=== PATIENT | female | born 1960 | race Caucasian/White ===

== ENCOUNTER → 2016-12-16 | Outpatient (CLI) | payer OTHER ==
[~2016-12-16] MED LIST: CONRAY-43 43% 50ML VIAL (Q9960) As Ordered ONE
--- NOTE | 2016-12-16 10:06 | REP ---
MR ARTHROGRAM RIGHT SHOULDER: TECHNIQUE: Axial T2 fat sat, coronal oblique T1, T2 fat sat, post arthrogram axial T1 fat sat, proton density, coronal oblique T1 fat sat, T2 sat, sagittal oblique T2 fat sat, ABER T1 fat sat. There is ill-defined high signal involving the supraspinatus tendon both along the bursal surface and under surface with a mild increased signal within the substance of the tendon as well, compatible with tendinopathy/tendonitis. The anterior portion of the tendon appears frayed. There is no other evidence of rotator cuff tear. There are mild hypertrophic degenerative changes of the acromioclavicular joint. Acromion is mildly curved in shape. Biceps tendon is within the bicipital groove with no tenosynovitis. There is no Hill-Sach's deformity. Deltoid muscle demonstrates no abnormal signal. Biceps labral complex appears intact. I do not see evidence of a labral tear. There is no bone marrow edema or occult fracture. There is a small joint effusion. There is a small amount of fluid in the subacromial bursa which may represent an element of subacromial bursitis. Several axillary lymph nodes are present one of which is mildly enlarged measuring 1.3 cm in short axis dimension. IMPRESSION: Mild hypertrophic degenerative changes acromioclavicular joint with curved shaped of the acromion. Tendinopathy/tendonitis of the supraspinatus tendon with fraying at the anterior leading edge. No other evidence of rotator cuff or labral tear. Mild fluid in the subacromial bursa may represent an element of mild subacromial bursitis. There is mild right axillary adenopathy. Recommend CT of the chest with contrast to further evaluate for other abnormalities. Signed by Cornell Garcia MD 12/16/2016 01:19 P
--- NOTE | 2016-12-17 18:31 | REP ---
Procedure: Right shoulder arthrogram The procedure was performed under the direct supervision of Dr. Garcia. History: Right shoulder pain The benefits and risks including but not limited to pain, infection, bleeding and anaphylaxis were explained to the patient and informed consent was obtained. Technique: The right a glenohumeral joint space was localized using fluoroscopic guidance. The skin was prepped and draped in a sterile fashion. 1% lidocaine was used as a local anesthetic. Using fluoroscopic guidance a 22 gauge spinal needle was inserted and advanced into the joint. 0.5 ml of Conray 43 was injected to verify placement. 11 ml of a solution containing 20 ml of sterile saline and 0.15 ml of ProHance was injected into the joint. The needle was removed and the patient was taken to MRI for postprocedural imaging. The the patient tolerated the procedure well and there were no immediate complications. 1 second of fluoro time was utilized for this procedure. Reviewed by BRAIN Rogers 12/16/2016 04:32 PSigned by Cornell Garcia MD 12/17/2016 06:23 P
== END ==
LOC: M RADPRO 06:59
PROVIDERS: ATTEND Physician Assistant
DX: M75.21 Bicipital tendinitis, right shoulder (principal); M25.811 Other specified joint disorders, right shoulder
CPT/HCPCS: 23350; 73223; 77002; A9576; Q9960

== ENCOUNTER → 2017-09-30 | Outpatient (REF) | payer OTHER | LOC: M SFHCWAGY 13:15 | PROVIDERS: ATTEND Nurse Practitioner Women's Health | DX: Z12.4 Encounter for screening for malignant neoplasm of cervix (principal) ==

== ENCOUNTER → 2017-09-30 | Outpatient (CLI) | payer OTHER ==
--- NOTE | 2017-09-30 15:49 | REPMRS ---
Patient History The patient states she had a clinical breast exam in Patient is postmenopausal. No known family history of cancer. Digital Woman Screen Mammo: September 30, 2017 - Exam #: [id number] Bilateral CC and MLO view(s) were taken. Technologist: Betty Wood, Technologist Prior study comparison: September 17, 2016, digital woman screen mammo performed at [facility]. September 12, 2015, digital woman screen mammo performed at [facility]. August 22, 2014, digital woman screen mammo performed at [facility]. FINDINGS: The breast tissue is heterogeneously dense. This may lower the sensitivity of mammography. There is a moderate amount of heterogeneously dense fibroglandular tissue which is fairly symmetric. There is no interval development of dominant mass, architectural distortion, or clustered microcalcification typical of malignancy. There has been no change in the appearance of the mammogram from the prior studies. ASSESSMENT: BI-RADS/ACR category 1 mammogram. Negative. Recommendation Routine screening mammogram of both breasts in 1 year (for women over age 40). This mammogram was interpreted with the aid of an FDA-approved computer-aided dectection system. Electronically Signed By: Rafael Mercado MD 09/30/17 [id number]
== END ==
LOC: M WHC 12:52
PROVIDERS: ATTEND Nurse Practitioner Women's Health
DX: Z12.31 Encounter for screening mammogram for malignant neoplasm of breast (principal)

== ENCOUNTER → 2017-10-03 | Outpatient (CLI) | payer OTHER ==
--- NOTE | 2017-10-04 06:53 | REP ---
Clinical: Pelvic pain . Technique: Transabdominal pelvic ultrasound followed by transvaginal examination for better evaluation of the endometrium and adnexa with color Doppler evaluation of the ovaries. Findings: Bladder is unremarkable and measures 9.6 x 6.5 x 9.5 cm . Normal anteverted uterus measures 5.0 x 2.3 x 3.3 cm. The endometrial complex measures 4.0 mm thickness. 1 cm left intramural fibroid noted. Bilateral ovaries are normal in appearance. Right ovary measures 1.9 x 1.3 x 1.3 cm. Left ovary measures 1.9 x 1.1 x 1.0 cm. Subjectively increased pelvic vasculature (left greater than right) may reflect pelvic congestion syndrome and should be correlated clinically. No pelvic free fluid or adnexal mass lesion Impression: 1. 1 cm left intramural fibroid. Otherwise normal uterus and ovaries. 2. Suggestions for pelvic congestion syndrome requires clinical and physical correlation.
== END ==
LOC: M WHC 12:24
PROVIDERS: ATTEND Nurse Practitioner Women's Health
DX: R10.2 Pelvic and perineal pain (principal)

== ENCOUNTER → 2018-10-06 | Outpatient (CLI) | payer OTHER | LOC: M WHC 12:56 | DX: Z12.31 Encounter for screening mammogram for malignant neoplasm of breast (principal) | CPT/HCPCS: 77067 ==

== ENCOUNTER → 2019-10-08 | Outpatient (CLI) | payer OTHER ==
--- NOTE | 2019-10-08 10:09 | REPMRS ---
Patient History The patient states she has not had a clinical breast exam in over a year. No known family history of cancer. 3D TOMOSYNTHESIS WAS PERFORMED. [facility] lifetime risk for [facility] cancer is 9.0%. Digital Woman Screen Mammo: October 08, 2019 - Exam #: [id number] Bilateral CC and MLO view(s) were taken. Technologist: Tammy Inman, Technologist Prior study comparison: October 06, 2018, bilateral digital woman screen mammo performed at [facility]. September 30, 2017, digital woman screen mammo performed at [facility]. FINDINGS: The breast tissue is heterogeneously dense. This may lower the sensitivity of mammography. There has been no change in the appearance of the mammogram from the prior studies. There is a moderate amount of residual fibroglandular tissue which is fairly symmetric. There is no interval development of dominant mass, areas of architectural distortion, or clustered microcalcification typical of malignancy. Assessment: BI-RADS/ACR category 1 mammogram. Negative Mammogram. Recommendation Routine screening mammogram in 1 year (for women over age 40). This mammogram was interpreted with the aid of an FDA-approved computer-aided dectection system. Electronically Signed By: Cornell Garcia MD 10/08/19 3717
== END ==
LOC: M WHC 09:19
PROVIDERS: ATTEND Nurse Practitioner Women's Health
DX: Z12.31 Encounter for screening mammogram for malignant neoplasm of breast (principal)

== ENCOUNTER → 2020-12-23 | Outpatient (CLI) | payer OTHER ==
--- NOTE | 2020-12-23 15:17 | REPMRS ---
Patient History The patient states she had a clinical breast exam in 12/2020 No known family history of cancer. Digital Woman Screen Mammo: December 23, 2020 - Exam #: [id number] Bilateral CC and MLO view(s) were taken. Technologist: Kerri Spaulding, Technologist Prior study comparison: October 08, 2019, bilateral digital woman screen mammo performed at [facility]. October 06, 2018, bilateral digital woman screen mammo performed at [facility]. September 30, 2017, digital woman screen mammo performed at [facility]. FINDINGS: The breast tissue is extremely dense which could obscure a lesion on mammography. The [place] volumetric breast density category is: D. There is an extremely dense symmetrical pattern of residual fibroglandular tissue. There has been no change in the appearance of the mammogram from the previous studies. There is no interval development of dominant mass, archetectural distortion, or grouped microcalcifications suggestive of malignancy. 3-D tomosynthesis shows no additional findings. Assessment: BI-RADS/ACR category 1 mammogram. Negative Mammogram. Recommendation Routine screening mammogram of both breasts in 1 year (for women over age 40). This patient's [facility] Lifetime Breast Cancer RIsk is estimated at 8.4 %. This mammogram was interpreted with the aid of an FDA-approved computer-aided dectection system. Electronically Signed By: Rafael Mercado MD 12/23/20 5540
== END ==
LOC: M WHC 13:39
PROVIDERS: ATTEND Nurse Practitioner Women's Health
DX: Z12.31 Encounter for screening mammogram for malignant neoplasm of breast (principal)

== ENCOUNTER → 2020-12-23 | Outpatient (REF) | payer OTHER | LOC: M SFHCWAGY 18:57 | PROVIDERS: ATTEND Nurse Practitioner Women's Health | DX: Z12.4 Encounter for screening for malignant neoplasm of cervix (principal) ==

== ENCOUNTER → 2021-02-23 | Outpatient (CLI) | payer OTHER ==
[~2021-02-23] MED LIST changes: -CONRAY-43 43% 50ML VIAL (Q9960) As Ordered ONE; +ISOVUE-300 61% 50ML VIAL As Ordered ONE; +LIDOCAINE 1% MDV 20ML VIAL As Ordered ONE; +methylPREDNISolone SUSP 40MG/ML 1ML VIAL (DEPO MEDROL) As Ordered ONE
--- NOTE | 2021-02-23 14:17 | REP ---
INDICATION: ADHESIVE CAPSULITIS OF LT SHOULDER. COMPARISON: None. TECHNIQUE: The procedure was performed under the direct supervision of Dr. Mercado. The benefits and risks including but not limited to pain infection and bleeding and anaphylaxis were explained to the patient and informed consent was obtained. The left glenohumeral joint space was localized using fluoroscopic guidance. The skin was prepped and draped in a sterile fashion. 1% lidocaine was used as a local anesthetic. Using fluoroscopic guidance, and last image hold technology, a 25-gauge needle was inserted and advanced into the joint. 0.5 ml of Isovue-300 was injected to verify placement. 5 ml of a solution containing 3 ml of 1% Xylocaine and 2 mL of Depo-Medrol 40 mg was injected. The needle was then removed. The patient tolerated the procedure well and there were no immediate complications. Less than 6 seconds of fluoro time was utilized for this procedure. FINDINGS: None IMPRESSION: Fluoro guidance for left shoulder injection. <Electronically signed by Norberto Malin > 02/23/21 1411 <Electronically signed by Rafael Mercado > 02/23/21 1417
== END ==
LOC: M RADPRO 11:10
PROVIDERS: ATTEND Physician Assistant Surgical
DX: M75.02 Adhesive capsulitis of left shoulder (principal)
CPT/HCPCS: 20610; 77002; J1030; Q9967

== ENCOUNTER → 2021-07-07 | Outpatient (REF) | payer OTHER ==
[2021-07-07 18:33] LABS: C REACTIVE PROTEIN QUANTITATIV < 0.30 MG/DL (0.00-0.30); LDH LACTATE DEHYDROGENASE 214 U/L (84-246)
== END ==
LOC: M LAB REF 16:44
PROVIDERS: ATTEND Internal Medicine
DX: R59.1 Generalized enlarged lymph nodes (principal)

== ENCOUNTER → 2021-07-13 | Outpatient (REF) | payer OTHER | LOC: M LAB REF 11:38 | PROVIDERS: ATTEND Internal Medicine | DX: D72.828 Other elevated white blood cell count (principal); D72.829 Elevated white blood cell count, unspecified ==

== ENCOUNTER → 2021-07-21 | Outpatient (CLI) | payer OTHER ==
--- NOTE | 2021-07-21 12:29 | REP ---
INDICATION: LT AXILLA ENLARGED LYMPH NODE. COMPARISON: None. TECHNIQUE: Real-time sonographic evaluation of left axilla performed. The right axilla was also scanned for comparison. FINDINGS: Multiple mild to moderately enlarged lymph nodes are seen in the left axilla. Seven enlarged lymph nodes are present: 2.1 x 1.3 x 1.2 cm; 2.3 x 2.2 x 1.8 cm; 2.8 x 1.8 x 1.1 cm; 1.5 x 1.3 x 1.0 cm; 1.7 x 1.6 x 0.9 cm; 2.6 x 1.3 x 1.1 cm; 2.9 x 1.9 x 1.1 cm. Mildly enlarged right axillary lymph nodes are also present: 1.8 x 1.6 x 1.3 cm; 2.1 x 1.5 x 1.2 cm; 2.6 x 1.7 x 0.9 cm; 1.7 x 1.6 x 1.1 cm. Most of the lymph nodes demonstrate replacement of the echogenic fatty hilum with diffuse hypoechoic echotexture. IMPRESSION: Bilateral axillary adenopathy left greater than right. Recommend ultrasound-guided biopsy to rule out neoplastic etiology. <Electronically signed by Cornell Garcia > 07/21/21 [id number]
== END ==
LOC: M RAD 11:06
PROVIDERS: ATTEND Surgery
DX: R59.0 Localized enlarged lymph nodes (principal)

== ENCOUNTER 2021-07-31 08:55 | Day surgery (SDC) | payer OTHER ==
[~2021-07-31] VITALS: Ht 162.6 cm; Wt 51.3 kg
[~2021-07-31 08:55] MED LIST changes: +D31000TA2 PO; -ISOVUE-300 61% 50ML VIAL As Ordered ONE; -LIDOCAINE 1% MDV 20ML VIAL As Ordered ONE; +LIDOCAINE 2% 100MG/5ML SDV (FOR ANES.) As Ordered ONE; +LR 1,000 ML IV ONE; +MIDAZOLAM INJ 2MG/2ML VIAL (J2250 PER 1MG) As Ordered ONE; +fentaNYL 100 MCG/2 ML INJECTION (J3010) As Ordered ONE; -methylPREDNISolone SUSP 40MG/ML 1ML VIAL (DEPO MEDROL) As Ordered ONE; +propofoL 500 MG/50 ML VIAL As Ordered ONE
[2021-07-31] MEDS ORDERED: BUPIVACAINE HCL 0.25% 30ML VIAL As Ordered ONE (10:18)
[2021-07-31] MEDS ORDERED: ePHEDrine SULFATE 25 MG/5 ML(5MG/ML) SYRINGE As Ordered ONE (10:50)
[2021-07-31] MEDS ORDERED: propofoL 200 MG/20 ML VIAL As Ordered ONE (11:40)
[2021-07-31] MEDS ORDERED: ONDANSETRON 4MG/2ML VIAL As Ordered ONE (11:45)
[2021-07-31] MEDS ORDERED: KETOROLAC 60MG 2ML VIAL As Ordered ONE (11:45)
[2021-07-31] MEDS ORDERED: ONDANSETRON 4MG/2ML VIAL IV PRN (12:05)
[2021-07-31] MEDS ORDERED: LR 1,000 ML IV SCH (12:05)
[2021-07-31] MEDS ORDERED: oxyCODONE 5MG TAB PO PRN (12:05)
[2021-07-31 12:30] VITALS: BP 101/52
--- NOTE | 2021-08-01 11:02 | ECGEPIP ---
[facility] Test Date: 2021-07-31 Pat Name: UMAIR FLOR Department: Room: - Gender: Female Retail Service Representative: BLADIMIR : 1960 Requested By: LUIS ANTONIO Saunders Order Number: [id number] Reading MD: Brendan Manley Measurements Intervals [place] Rate: 71 P: 83 MA: 118 QRS: 51 QRSD: 80 T: 23 QT: 438 QTc: 475 Interpretive Statements Normal sinus rhythm Nonspecific ST abnormality No prior ECG available for comparison at the time of interpretation. Electronically Signed on 08-01-2021 11:01:56 EDT by Brendan Manley
--- NOTE | 2021-08-04 10:14 | RO ---
OPERATIVE NOTE DATE OF OPERATION: 07/31/2021 PREOPERATIVE DIAGNOSIS: Lymphadenopathy. POSTOPERATIVE DIAGNOSIS: Lymphadenopathy. PROCEDURE: Excisional biopsy of left base of neck lymph node. SURGEON: Donny Saunders MD ENGINEERING AID: None. ANESTHESIA: Local with 1% Xylocaine with monitored anesthesia care. INDICATIONS FOR PROCEDURE: The patient is a 60-year-old woman who on recent MRI was noted to have some mildly enlarged lymph nodes in the left axilla and left supraclavicular area. An ultrasound of bilateral axillae showed mildly enlarged nodes on both sides. She had multiple small to medium sized nodes palpable in the neck and supraclavicular areas bilaterally. She underwent testing through her primary physician which included peripheral smear with marker studies that suggested the possibility of follicular lymphoma. She is now for excisional biopsy of node in left neck. DESCRIPTION OF PROCEDURE: The patient was brought to the operating room and placed on the table in supine position. She received sedation from anesthesia. The left neck and upper chest were prepped and draped in sterile fashion. 1% Xylocaine was infiltrated over a node palpable at the base of the neck on the left. This was approximately 1 to 1.2 cm in size. An approximately 2 cm incision was made. This was deepened through the subcutaneous tissues and fascia sharply. The node was identified and dissected free from surrounding structures. Small blood vessels were clipped with hemoclips and divided. The node was quite rounded and approximately 1.2 cm in size maximally. This was sent fresh to pathology for appropriate testing. The wound was inspected for hemostasis which was excellent. The subcutaneous tissues were approximated with chromic sutures. The skin edges were approximated with running subcuticular 4-0 Vicryl and Steri-Strips. Light dressing was applied. The patient tolerated the procedure well without apparent complication. She was awakened in the operating room and taken to the recovery room in stable condition.
== END 2021-07-31 12:50 | disposition home or self-care (01) ==
LOC: M SDC 08:55
PROVIDERS: ATTEND Surgery
DX: C82.21 Follicular lymphoma grade III, unspecified, lymph nodes of head, face, and neck (principal); M25.512 Pain in left shoulder; Z79.899 Other long term (current) drug therapy; Z88.1 Allergy status to other antibiotic agents
CPT/HCPCS: 38510; 88305; 93005; J1885; J2250; J2405; J3010; U0002

== ENCOUNTER → 2021-08-12 | Outpatient (CLI) | payer OTHER ==
[~2021-08-12] MED LIST changes: +LIDOCAINE 1% MDV 20ML VIAL As Ordered ONE; -LIDOCAINE 2% 100MG/5ML SDV (FOR ANES.) As Ordered ONE; -LR 1,000 ML IV ONE; -MIDAZOLAM INJ 2MG/2ML VIAL (J2250 PER 1MG) As Ordered ONE; -fentaNYL 100 MCG/2 ML INJECTION (J3010) As Ordered ONE; -propofoL 500 MG/50 ML VIAL As Ordered ONE
[2021-08-12 10:10] VITALS: BP 104/54
[2021-08-12 10:23] LABS: HEMOGLOBIN 11.9 g/dl (12.0-15.5); MEAN CORPUSCULAR HEMOGLOBIN 32.2 pg (27.0-33.0); MEAN CORPUSCULAR HGB CONC 32.2 g/dl (32.0-36.5); PLATELET COUNT, AUTOMATED 140 10^3/uL (150-450); WHITE BLOOD COUNT 10.8 10^3/uL (4.0-10.0)
--- NOTE | 2021-08-12 18:25 | REP ---
INDICATION: LYMPHOMA. COMPARISON: None. TECHNIQUE: The procedure was performed under the direct supervision of Dr. Garcai. The risks and benefits of the procedure were explained to the patient and informed consent was obtained. The right iliac bone was localized using CT guidance. The skin was prepped and draped in a sterile fashion. 6 mL of 1% lidocaine was used as a local anesthetic. Using CT guidance an 11 gauge bone marrow biopsy system was inserted. 12 mL of marrow fluid was withdrawn. One core biopsy sample was then obtained. Estimated blood loss: Less than 1 mL. The patient tolerated the procedure well and there were no immediate complications. After the appropriate amount to monitor convalescence the patient was discharged from the department. FINDINGS: None IMPRESSION: CT-guided right iliac bone marrow biopsy. <Electronically signed by Norberto Malin > 08/12/21 [id number] <Electronically signed by Cornell Garcia > 08/12/21 [id number]
== END ==
LOC: M IRPRO 08:11
PROVIDERS: ATTEND Internal Medicine Medical Oncology
DX: C82.90 Follicular lymphoma, unspecified, unspecified site (principal)

== ENCOUNTER → 2021-08-17 | Outpatient (CLI) | payer OTHER ==
[~2021-08-17] MED LIST changes: -LIDOCAINE 1% MDV 20ML VIAL As Ordered ONE
--- NOTE | 2021-08-17 10:57 | REP ---
INDICATION: STAGING FOLLICULAR LYMPHOMA C82.98. COMPARISON: None. TECHNIQUE: After the intravenous administration of 9.10 mCi of FDG 18 triplane whole-body PET-CT was performed from the skull base to the mid thigh. FINDINGS: There is extensive hypermetabolic lymphadenopathy in the neck bilaterally in both suprahyoid and infrahyoid locations. The SUV values range from 2.53-5.33 maximally. Hypermetabolic adenopathy continues inferiorly in the supraclavicular and extensively in the axillary regions where the SUV values range from 4.33 to 6.32 maximally. Hypermetabolic mediastinal adenopathy is identified with a maximal SUV value of 4.33. There is also evidence of bilateral hypermetabolic hilar adenopathy with a maximal SUV value on the right of 3.49 and on the left of 2.52. There is a small focus of hypermetabolic activity seen in the anterior mediastinum to the left of the inferior sternum abutting the pericardium and having a maximal SUV value of 2.52. Diffuse hypermetabolism seen throughout the spleen with maximal SUV values ranging from 4.5 to 4.69. There is extensive bilateral retroperitoneal hypermetabolic activity particularly in the para-aortic regions but seen also scattered throughout the small bowel mesentery. There is a range of hypermetabolism seen throughout these foci with the highest SUV of 8.13. There is extensive bilateral pelvic sidewall adenopathy and hypermetabolism with a maximal SUV value on the left of 5.10 none the right 5.81. There is bilateral inguinal lymph node hypermetabolic activity with a maximal SUV value of 3.23. There is diffuse and extensive hypermetabolism seen throughout the axial and appendicular skeleton with SUV values as high as 3.99 in the proximal femora and hypermetabolism in the bony pelvis with maximal SUV values of 3.21. The diffuse hypermetabolism seen throughout the spine has SUV values between 3.18 and 3.53. IMPRESSION: Numerous foci of abnormal hypermetabolic activity seen both above and below the diaphragm within the neck, chest, abdomen, and pelvis and in both axial and appendicular skeleton consistent with the patient's diagnosis of lymphoma. <Electronically signed by Cl Medina > 08/17/21 [id number]
== END ==
LOC: M PLARAD 08:05
PROVIDERS: ATTEND Internal Medicine Medical Oncology
DX: R93.89 Abnormal findings on diagnostic imaging of other specified body structures (principal); C82.98 Follicular lymphoma, unspecified, lymph nodes of multiple sites
CPT/HCPCS: 78815; A9552

== ENCOUNTER → 2022-06-28 | Outpatient (CLI) | payer OTHER ==
[~2022-06-28] MED LIST changes: -D31000TA2 PO; +GASTROGRAFIN SOLUTION 30ML (Q9963) As Ordered ONE; +ISOVUE-370 76% 100ML VIAL As Ordered ONE; +VITA100093 PO
== END ==
LOC: M RAD 07:27
PROVIDERS: ATTEND Internal Medicine Medical Oncology
DX: C82.90 Follicular lymphoma, unspecified, unspecified site (principal); R91.1 Solitary pulmonary nodule; J91.8 Pleural effusion in other conditions classified elsewhere; R16.2 Hepatomegaly with splenomegaly, not elsewhere classified; R93.41 Abnormal radiologic findings on diagnostic imaging of renal pelvis, ureter, or bladder
CPT/HCPCS: 71260; 74177; Q9963; Q9967

== ENCOUNTER → 2022-07-09 | Outpatient (REF) | payer OTHER ==
[~2022-07-09] MED LIST changes: -GASTROGRAFIN SOLUTION 30ML (Q9963) As Ordered ONE; -ISOVUE-370 76% 100ML VIAL As Ordered ONE
== END ==
LOC: M SMT 16:42
PROVIDERS: ATTEND Physician Assistant
DX: N13.30 Unspecified hydronephrosis (principal)

== ENCOUNTER → 2022-07-29 | Outpatient (REF) | payer OTHER ==
[2022-07-29 12:45] LABS: APPEARANCE, URINE MANUAL CLEAR (CLEAR); BILIRUBIN, URINE MANUAL NEGATIVE (NEGATIVE); BLOOD URINE MANUAL NEGATIVE (NEGATIVE); COLOR, URINE MANUAL YELLOW (YELLOW); GLUCOSE, URINE (UA) MANUAL NEGATIVE (NEGATIVE); KETONE, URINE MANUAL NEGATIVE (NEGATIVE); LEUKOCYTE ESTERASE, URINE MAN NEGATIVE (NEGATIVE); NITRITE, URINE MANUAL NEGATIVE (NEGATIVE); PROTEIN, URINE MANUAL TRACE mg/dL (NEGATIVE); SPECIFIC GRAVITY,URINE MANUAL 1.015 (1.002-1.035); UROBILINOGEN, URINE MANUAL NORMAL (NORMAL)
[2022-07-29 13:13] LABS: RBC, URINE NONE SEEN /hpf (0-3); SQUAMOUS EPITHELIAL CELL URINE SMALL AMOUNT /hpf (SMALL AMT); WBC, URINE 0-1 /hpf (0-3)
[2022-07-29 13:14] LABS: BACTERIA, URINE NONE SEEN
== END ==
LOC: M LAB REF 12:08
PROVIDERS: ATTEND Internal Medicine
DX: Z01.810 Encounter for preprocedural cardiovascular examination (principal)

== ENCOUNTER → 2022-08-01 | Outpatient (CLI) | payer OTHER | LOC: M LABSMTC 10:21 | PROVIDERS: ATTEND Anesthesiology | DX: Z01.818 Encounter for other preprocedural examination (principal); Z11.52 Encounter for screening for COVID-19 ==

== ENCOUNTER 2022-08-06 06:02 | Day surgery (SDC) | payer OTHER ==
[~2022-08-06] VITALS: Ht 162.6 cm; Wt 50.8 kg
[~2022-08-06 06:02] MED LIST changes: +ceFAZolin SOD 2 GM in IV 1 EA IV ONE
[2022-08-06] MEDS ORDERED: LR 1,000 ML IV SCH ×2 (06:30→08:30)
[2022-08-06] MEDS ORDERED: ISOVUE-300 61% 50ML VIAL As Ordered ONE (07:13)
[2022-08-06] MEDS ORDERED: MIDAZOLAM INJ 2MG/2ML VIAL (J2250 PER 1MG) As Ordered ONE (07:21)
[2022-08-06] MEDS ORDERED: propofoL 200 MG/20 ML VIAL As Ordered ONE (07:21)
[2022-08-06] MEDS ORDERED: LIDOCAINE 2% 100MG/5ML SDV (FOR ANES.) As Ordered ONE (07:21)
[2022-08-06] MEDS ORDERED: KETOROLAC 60MG 2ML VIAL As Ordered ONE (07:21)
[2022-08-06] MEDS ORDERED: fentaNYL 100 MCG/2 ML INJECTION As Ordered ONE (07:21)
[2022-08-06] MEDS ORDERED: oxyCODONE 5MG TAB PO PRN (08:30)
[2022-08-06] MEDS ORDERED: HYDROMORPHONE HCL 0.5 MG/ 0.5 ML SYRINGE (J1170 PER 1) IV PRN (08:30)
[2022-08-06] MEDS ORDERED: ONDANSETRON 4MG 2ML VIAL IV PRN (08:30)
[2022-08-06] MEDS ORDERED: METOCLOPRAMIDE INJ 10MG/2ML VIAL (J2765 PER 1) As Ordered ONE (08:40)
[2022-08-06] MEDS ORDERED: PHENYLephrine 500MCG 5ML (100MCG/ML) SYRINGE As Ordered ONE (08:40)
[2022-08-06] MEDS ORDERED: dexameTHASONE 4 MG/ML 1ML VIAL (J1100 PER 1MG) As Ordered ONE (08:40)
[2022-08-06] MEDS ORDERED: ONDANSETRON 4MG 2ML VIAL As Ordered ONE (08:40)
[2022-08-06] MEDS ORDERED: OXYB5TAB10 PO (08:54)
[2022-08-06] MEDS ORDERED: oxyBUTYnin 5 MG TAB PO PRN (09:05)
[2022-08-06] MEDS ORDERED: ACETAMINOPHEN TAB 650MG DOSE (2X325MG) PO PRN (09:05)
[2022-08-06] MEDS: fentaNYL 100 MCG/2 ML INJECTION IV PRN ×4 (09:23→09:41)
[2022-08-06 10:25] VITALS: BP 123/60
[2022-08-06] MEDS ORDERED: ACET-683 PO (16:40)
[2022-08-13] MEDS ORDERED: ONDA-83 PO (10:51)
== END 2022-08-06 10:36 | disposition home or self-care (01) ==
LOC: M SDC 06:02
PROVIDERS: ATTEND Urology
DX: N13.39 Other hydronephrosis (principal); R59.0 Localized enlarged lymph nodes; C85.90 Non-Hodgkin lymphoma, unspecified, unspecified site; Z88.8 Allergy status to other drugs, medicaments and biological substances
CPT/HCPCS: 52332; 52351; 74420; C1769; C2625; J0690; J1100; J1885; J2250; J2370; J2405; J2765; J3010; Q9967

== ENCOUNTER 2022-08-06 16:27 | Inpatient (IN) | payer OTHER ==
[~2022-08-06] VITALS: Ht 162.6 cm; Wt 53.3 kg
[~2022-08-06 16:27] MED LIST changes: +OXYB5TAB10 PO; -ceFAZolin SOD 2 GM in IV 1 EA IV ONE
[2022-08-06] MEDS ORDERED: ACET-683 PO (16:40)
[2022-08-06] MEDS ORDERED: NS 1,000 ML IV ONE (19:25)
[2022-08-06] MEDS ORDERED: ONDANSETRON 4MG 2ML VIAL IV ONE (19:25)
[2022-08-06] MEDS ORDERED: MORPHINE 2 MG/ML 1ML VIAL IV ONE (19:45)
[2022-08-06] MEDS ORDERED: HOME MED LIST COMPLETE! XX SCH (19:45)
[2022-08-06 21:02] LABS: BASO % 0.3 % (0.0-1.0); EOS # 0.1 10^3/uL (0.0-0.5); EOS % 0.6 % (0.0-3.0); HEMATOCRIT 34.6 % (36.0-47.0); HEMOGLOBIN 11.3 g/dl (12.0-15.5); LYMPH # 2.7 10^3/uL (1.5-5.0); LYMPH % 25.2 % (24.0-44.0); MEAN CORPUSCULAR HEMOGLOBIN 31.2 pg (27.0-33.0); MEAN CORPUSCULAR HGB CONC 32.7 g/dl (32.0-36.5); MEAN CORPUSCULAR VOLUME 95.6 fl (80.0-96.0); MONO # 0.8 10^3/uL (0.0-0.8); MONO % 7.7 % (2.0-8.0); NEUTROPHILS # 7.1 10^3/uL (1.5-8.5); NEUTROPHILS % 65.8 % (36.0-66.0); PLATELET COUNT, AUTOMATED 201 10^3/uL (150-450); RED BLOOD COUNT 3.62 10^6/uL (4.00-5.40); WHITE BLOOD COUNT 10.8 10^3/uL (4.0-10.0)
[2022-08-06] MEDS ORDERED: oxyBUTYnin 5 MG TAB PO STA (21:44)
[2022-08-06 21:45] LABS: ALBUMIN 3.7 GM/DL (3.2-5.2); BILIRUBIN,DIRECT 0.1 MG/DL (0.0-0.2); BILIRUBIN,TOTAL 0.5 MG/DL (0.2-1.0); CALCIUM LEVEL 9.4 MG/DL (8.8-10.2); CREATININE FOR GFR 2.44 MG/DL (0.55-1.30); GLOMERULAR FILTRATION RATE 21.3 (>45); POTASSIUM SERUM 5.2 MEQ/L (3.5-5.1); TOTAL PROTEIN 7.1 GM/DL (6.4-8.2)
[2022-08-06 22:40] LABS: RSV AMPLIFICATION NEGATIVE (NEGATIVE)
[2022-08-07] MEDS ORDERED: MOM 30ML SUSPENSION UDC PO PRN (00:50)
[2022-08-07 01:20] VITALS: BP 112/66
[2022-08-07 01:24] LABS: APPEARANCE, URINE MANUAL CLOUDY (CLEAR); BILIRUBIN, URINE MANUAL NEGATIVE (NEGATIVE); COLOR, URINE MANUAL RED (YELLOW); GLUCOSE, URINE (UA) MANUAL NEGATIVE (NEGATIVE); KETONE, URINE MANUAL 1+ mg/dL (NEGATIVE); PROTEIN, URINE MANUAL 3+ mg/dL (NEGATIVE); SPECIFIC GRAVITY,URINE MANUAL 1.005 (1.002-1.035); UROBILINOGEN, URINE MANUAL NORMAL (NORMAL)
[2022-08-07 01:25] LABS: BLOOD URINE MANUAL POSITIVE (NEGATIVE); LEUKOCYTE ESTERASE, URINE MAN POSITIVE (NEGATIVE); NITRITE, URINE MANUAL NEGATIVE (NEGATIVE)
[2022-08-07 01:33] LABS: RBC, URINE TNTC /hpf (0-3)
[2022-08-07 01:34] LABS: SQUAMOUS EPITHELIAL CELL URINE SMALL AMOUNT /hpf (SMALL AMT)
[2022-08-07 01:35] LABS: AMORPHOUS SEDIMENT, URINE SMALL AMOUNT (NEGATIVE); BACTERIA, URINE NONE SEEN; HYALINE CAST, URINE NONE SEEN /lpf (0-1); MUCUS, URINE SMALL AMOUNT (NEGATIVE)
[2022-08-07] MEDS: NS 1,000 ML IV SCH ×3 (02:29→23:17)
[2022-08-07] MEDS: cefTRIAXone SOD 1 GM in D5W MINI-BAG PLUS 50 ML IV SCH (02:30)
[2022-08-07] MEDS: CALCIUM CARBONATE 500 MG CHEW U/D PO PRN (02:30)
[2022-08-07] MEDS: ACETAMINOPHEN TAB 650MG DOSE (2X325MG) PO PRN (02:31)
[2022-08-07] MEDS: HEPARIN SOD (PORCINE) 5000UNITS/ML 1ML VIAL/SYRINGE SC SCH ×3 (05:26→21:01)
[2022-08-07 06:00] VITALS: BP 106/63
[2022-08-07 09:26] LABS: BASO % 0.4 % (0.0-1.0); EOS # 0.3 10^3/uL (0.0-0.5); EOS % 2.9 % (0.0-3.0); HEMOGLOBIN 10.9 g/dl (12.0-15.5); LYMPH # 2.4 10^3/uL (1.5-5.0); LYMPH % 23.5 % (24.0-44.0); MEAN CORPUSCULAR HEMOGLOBIN 31.1 pg (27.0-33.0); MEAN CORPUSCULAR HGB CONC 31.1 g/dl (32.0-36.5); MONO % 9.8 % (2.0-8.0); NEUTROPHILS # 6.3 10^3/uL (1.5-8.5); PLATELET COUNT, AUTOMATED 178 10^3/uL (150-450); WHITE BLOOD COUNT 10.1 10^3/uL (4.0-10.0)
[2022-08-07] MEDS: oxyBUTYnin 5 MG TAB PO SCH ×3 (09:34→21:13)
[2022-08-07 09:51] LABS: CALCIUM LEVEL 8.7 MG/DL (8.8-10.2); CREATININE FOR GFR 3.52 MG/DL (0.55-1.30); POTASSIUM SERUM 4.6 MEQ/L (3.5-5.1)
[2022-08-07] MEDS: MORPHINE 2 MG/ML 1ML VIAL IV PRN ×2 (12:06→21:14)
[2022-08-07] MEDS: ONDANSETRON 4MG 2ML VIAL IV PRN (12:26)
[2022-08-07 14:00] VITALS: BP 109/62
[2022-08-07 19:49] VITALS: BP 117/63
[2022-08-08] MEDS: cefTRIAXone SOD 1 GM in D5W MINI-BAG PLUS 50 ML IV SCH (03:51)
[2022-08-08] MEDS: HEPARIN SOD (PORCINE) 5000UNITS/ML 1ML VIAL/SYRINGE SC SCH ×3 (06:00→20:24)
[2022-08-08 06:24] VITALS: BP 116/60
[2022-08-08 06:29] LABS: HEMATOCRIT 30.9 % (36.0-47.0); HEMOGLOBIN 9.7 g/dl (12.0-15.5); MEAN CORPUSCULAR HEMOGLOBIN 30.8 pg (27.0-33.0); MEAN CORPUSCULAR HGB CONC 31.4 g/dl (32.0-36.5); MEAN CORPUSCULAR VOLUME 98.1 fl (80.0-96.0); PLATELET COUNT, AUTOMATED 157 10^3/uL (150-450); RED BLOOD COUNT 3.15 10^6/uL (4.00-5.40); WHITE BLOOD COUNT 9.1 10^3/uL (4.0-10.0)
[2022-08-08 06:58] LABS: ALBUMIN 2.6 GM/DL (3.2-5.2); ALT/SGPT < 6 U/L (12-78); BILIRUBIN,TOTAL 0.3 MG/DL (0.2-1.0); BLOOD UREA NITROGEN 38 MG/DL (7-18); CALCIUM LEVEL 8.2 MG/DL (8.8-10.2); CARBON DIOXIDE LEVEL 20 MEQ/L (21-32); CHLORIDE LEVEL 107 MEQ/L (98-107); CREATININE FOR GFR 4.63 MG/DL (0.55-1.30); GLOMERULAR FILTRATION RATE 10.2 (>45); GLUCOSE, FASTING 93 MG/DL (70-100); POTASSIUM SERUM 4.6 MEQ/L (3.5-5.1); SODIUM LEVEL 136 MEQ/L (136-145); TOTAL PROTEIN 5.3 GM/DL (6.4-8.2)
[2022-08-08] MEDS: oxyBUTYnin 5 MG TAB PO SCH ×3 (08:25→20:31)
[2022-08-08] MEDS: NS 1,000 ML IV SCH (09:05)
[2022-08-08 14:00] VITALS: BP 139/75
[2022-08-08] MEDS: MORPHINE 2 MG/ML 1ML VIAL IV PRN ×2 (15:15→20:32)
[2022-08-08 20:27] VITALS: BP 139/73
[2022-08-08] MEDS: CALCIUM CARBONATE 500 MG CHEW U/D PO PRN (20:31)
[2022-08-08 22:28] VITALS: BP 138/70
[2022-08-08] MEDS: ACETAMINOPHEN TAB 650MG DOSE (2X325MG) PO PRN (22:56)
[2022-08-09] VITALS (8 sets, daily range): BP systolic 118–143; BP diastolic 60–76
[2022-08-09 00:09] LABS: CALCIUM LEVEL 8.3 MG/DL (8.8-10.2); CREATININE FOR GFR 5.22 MG/DL (0.55-1.30); GLOMERULAR FILTRATION RATE 8.9 (>45); POTASSIUM SERUM 4.9 MEQ/L (3.5-5.1)
[2022-08-09 00:38] LABS: RSV AMPLIFICATION NEGATIVE (NEGATIVE)
[2022-08-09] MEDS: DOXYCYCLINE HYCLATE 100MG TABLET PO SCH ×3 (00:47→19:50)
[2022-08-09] MEDS: cefTRIAXone SOD 1 GM in D5W MINI-BAG PLUS 50 ML IV SCH (03:56)
[2022-08-09] MEDS: HEPARIN SOD (PORCINE) 5000UNITS/ML 1ML VIAL/SYRINGE SC SCH ×3 (05:06→19:42)
[2022-08-09] MEDS: ONDANSETRON 4MG 2ML VIAL IV PRN (05:55)
[2022-08-09] MEDS: MORPHINE 2 MG/ML 1ML VIAL IV PRN (05:56)
[2022-08-09 06:36] LABS: VENOUS BASE EXCESS -6.8 (-2.0-2.0); VENOUS HCO3 17.4 MEQ/L (23.0-27.0); VENOUS O2 SATURATION 98.2 % (60.0-80.0); VENOUS PARTIAL PRESSURE CO2 30.9 mmHg (38.0-50.0); VENOUS PARTIAL PRESSURE O2 116.7 mmHg (30.0-50.0); VENOUS PH 7.368 UNITS (7.330-7.430); VENOUS STANDARD HCO3 18.9 MEQ/L; VENOUS TOTAL CO2 18.3 MEQ/L (24.0-28.0)
[2022-08-09 06:45] LABS: BASO # 0.1 10^3/uL (0.0-0.2); BASO % 0.6 % (0.0-1.0); EOS # 0.3 10^3/uL (0.0-0.5); EOS % 2.9 % (0.0-3.0); HEMATOCRIT 35.6 % (36.0-47.0); HEMOGLOBIN 10.9 g/dl (12.0-15.5); LYMPH # 3.3 10^3/uL (1.5-5.0); LYMPH % 28.9 % (24.0-44.0); MEAN CORPUSCULAR HEMOGLOBIN 30.4 pg (27.0-33.0); MEAN CORPUSCULAR HGB CONC 30.6 g/dl (32.0-36.5); MEAN CORPUSCULAR VOLUME 99.4 fl (80.0-96.0); MONO # 1.2 10^3/uL (0.0-0.8); MONO % 10.6 % (2.0-8.0); NEUTROPHILS # 6.4 10^3/uL (1.5-8.5); NEUTROPHILS % 56.6 % (36.0-66.0); PLATELET COUNT, AUTOMATED 195 10^3/uL (150-450); RED BLOOD COUNT 3.58 10^6/uL (4.00-5.40); WHITE BLOOD COUNT 11.3 10^3/uL (4.0-10.0)
[2022-08-09 07:19] LABS: CALCIUM LEVEL 9.1 MG/DL (8.8-10.2); CREATININE FOR GFR 5.56 MG/DL (0.55-1.30); GLOMERULAR FILTRATION RATE 8.2 (>45); POTASSIUM SERUM 4.8 MEQ/L (3.5-5.1)
[2022-08-09] MEDS: oxyBUTYnin 5 MG TAB PO SCH ×3 (08:44→19:50)
[2022-08-09] MEDS ORDERED: dexameTHASONE 4 MG/ML 1ML VIAL (J1100 PER 1MG) As Ordered ONE (10:03)
[2022-08-09] MEDS ORDERED: ONDANSETRON 4MG 2ML VIAL As Ordered ONE (10:03)
[2022-08-09] MEDS ORDERED: propofoL 200 MG/20 ML VIAL As Ordered ONE (10:03)
[2022-08-09] MEDS ORDERED: LIDOCAINE 2% 100MG/5ML SDV (FOR ANES.) As Ordered ONE (10:03)
[2022-08-09] MEDS ORDERED: fentaNYL 100 MCG/2 ML INJECTION As Ordered ONE (10:04)
[2022-08-09] MEDS ORDERED: MIDAZOLAM INJ 2MG/2ML VIAL (J2250 PER 1MG) As Ordered ONE (10:04)
[2022-08-09] MEDS ORDERED: LIDOCAINE 2% 5ML JELLY UROJET As Ordered ONE (10:25)
[2022-08-09] MEDS ORDERED: ISOVUE-300 61% 50ML VIAL As Ordered ONE (10:25)
[2022-08-09] MEDS ORDERED: FUROSEMIDE 40MG/4ML VIAL (J1940) IV ONE (10:45)
[2022-08-09] MEDS ORDERED: ACETAMINOPHEN 1000MG 100ML IV BTL (OFIRMEV) (J0131 PER 10MG) As Ordered ONE (11:15)
[2022-08-09] MEDS ORDERED: LR 1,000 ML IV SCH (11:45)
[2022-08-09] MEDS ORDERED: METOCLOPRAMIDE INJ 10MG/2ML VIAL (J2765 PER 1) IV PRN (11:45)
[2022-08-09] MEDS ORDERED: ONDANSETRON 4MG 2ML VIAL IV PRN (11:45)
[2022-08-09] MEDS ORDERED: fentaNYL 100 MCG/2 ML INJECTION IV PRN (11:45)
[2022-08-09] MEDS ORDERED: HYDROMORPHONE HCL 0.5 MG/ 0.5 ML SYRINGE (J1170 PER 1) IV PRN (11:45)
[2022-08-09] MEDS ORDERED: oxyCODONE 5MG TAB PO PRN (11:45)
[2022-08-09] MEDS: ACETAMINOPHEN TAB 650MG DOSE (2X325MG) PO PRN (22:02)
[2022-08-10] MEDS: HEPARIN SOD (PORCINE) 5000UNITS/ML 1ML VIAL/SYRINGE SC SCH ×4 (01:39→22:30)
[2022-08-10 02:00] VITALS: BP 147/76
[2022-08-10] MEDS: cefTRIAXone SOD 1 GM in D5W MINI-BAG PLUS 50 ML IV SCH (02:01)
[2022-08-10] MEDS: MORPHINE 2 MG/ML 1ML VIAL IV PRN (02:01)
[2022-08-10] MEDS: ACETAMINOPHEN TAB 650MG DOSE (2X325MG) PO PRN (02:50)
[2022-08-10] MEDS ORDERED: MORPHINE 2 MG/ML 1ML VIAL IV ONE (04:25)
[2022-08-10] MEDS: ONDANSETRON 4MG 2ML VIAL IV PRN (04:37)
[2022-08-10 05:03] LABS: BASO # 0.1 10^3/uL (0.0-0.2); BASO % 0.5 % (0.0-1.0); EOS # 0.2 10^3/uL (0.0-0.5); EOS % 2.2 % (0.0-3.0); HEMATOCRIT 33.1 % (36.0-47.0); HEMOGLOBIN 10.5 g/dl (12.0-15.5); LYMPH # 2.7 10^3/uL (1.5-5.0); LYMPH % 24.2 % (24.0-44.0); MEAN CORPUSCULAR HEMOGLOBIN 30.4 pg (27.0-33.0); MEAN CORPUSCULAR HGB CONC 31.7 g/dl (32.0-36.5); MEAN CORPUSCULAR VOLUME 95.9 fl (80.0-96.0); MONO # 1.2 10^3/uL (0.0-0.8); MONO % 10.5 % (2.0-8.0); NEUTROPHILS # 6.8 10^3/uL (1.5-8.5); NEUTROPHILS % 62.1 % (36.0-66.0); PLATELET COUNT, AUTOMATED 226 10^3/uL (150-450); RED BLOOD COUNT 3.45 10^6/uL (4.00-5.40)
[2022-08-10 05:29] LABS: ALBUMIN 3.2 GM/DL (3.2-5.2); ALT/SGPT < 6 U/L (12-78); BILIRUBIN,TOTAL 0.3 MG/DL (0.2-1.0); BLOOD UREA NITROGEN 41 MG/DL (7-18); CALCIUM LEVEL 9.3 MG/DL (8.8-10.2); CARBON DIOXIDE LEVEL 22 MEQ/L (21-32); CHLORIDE LEVEL 105 MEQ/L (98-107); CREATININE FOR GFR 3.19 MG/DL (0.55-1.30); GLOMERULAR FILTRATION RATE 15.6 (>45); GLUCOSE, FASTING 114 MG/DL (70-100); POTASSIUM SERUM 4.1 MEQ/L (3.5-5.1); SODIUM LEVEL 136 MEQ/L (136-145); TOTAL PROTEIN 6.4 GM/DL (6.4-8.2)
[2022-08-10 05:45] VITALS: BP 144/79
[2022-08-10] MEDS: DOXYCYCLINE HYCLATE 100MG TABLET PO SCH ×2 (09:33→20:10)
[2022-08-10] MEDS: oxyBUTYnin 5 MG TAB PO SCH (09:33)
[2022-08-10] MEDS ORDERED: MIRALAX *UNIT DOSE* 17GM PACKET PO PRN (11:35)
[2022-08-10] MEDS ORDERED: PERCOCET 5MG/325MG TAB PO PRN (11:35)
[2022-08-10] MEDS ORDERED: SENOKOT S TAB PO PRN (11:35)
[2022-08-10 14:00] VITALS: BP 138/73
[2022-08-10] MEDS: BISACODYL 5 MG TAB PO PRN (15:07)
[2022-08-10] MEDS ORDERED: HYDROMORPHONE HCL 0.5 MG/ 0.5 ML SYRINGE (J1170 PER 1) IV ONE (15:45)
[2022-08-10] MEDS: PERCOCET 5MG/325MG TAB PO PRN (20:40)
[2022-08-10] MEDS ORDERED: oxyBUTYnin *DITROPAN XL* 5 MG TABCR PO SCH (21:00)
[2022-08-10] MEDS ORDERED: CEFDINIR 300 MG CAP (OMNICEF) PO SCH (21:00)
[2022-08-10 22:00] VITALS: BP 135/72
[2022-08-11 05:45] VITALS: BP 114/58
[2022-08-11 06:33] LABS: HEMATOCRIT 29.8 % (36.0-47.0); HEMOGLOBIN 9.2 g/dl (12.0-15.5); MEAN CORPUSCULAR HEMOGLOBIN 30.2 pg (27.0-33.0); MEAN CORPUSCULAR HGB CONC 30.9 g/dl (32.0-36.5); MEAN CORPUSCULAR VOLUME 97.7 fl (80.0-96.0); PLATELET COUNT, AUTOMATED 218 10^3/uL (150-450); RED BLOOD COUNT 3.05 10^6/uL (4.00-5.40); WHITE BLOOD COUNT 7.1 10^3/uL (4.0-10.0)
[2022-08-11 07:02] LABS: CALCIUM LEVEL 8.9 MG/DL (8.8-10.2); CREATININE FOR GFR 1.56 MG/DL (0.55-1.30); GLOMERULAR FILTRATION RATE 35.7 (>45); POTASSIUM SERUM 3.8 MEQ/L (3.5-5.1)
[2022-08-11] MEDS: DOXYCYCLINE HYCLATE 100MG TABLET PO SCH (08:10)
[2022-08-11] MEDS: PERCOCET 5MG/325MG TAB PO PRN ×2 (08:11→16:55)
[2022-08-11] MEDS: ONDANSETRON 4MG 2ML VIAL IV PRN (08:15)
[2022-08-11] MEDS ORDERED: DOXY100T PO (08:56)
[2022-08-11] MEDS ORDERED: PERCOCET PO (08:56)
[2022-08-11] MEDS ORDERED: SENN-52 PO (08:56)
[2022-08-11] MEDS ORDERED: DITR5TAB PO (08:56)
[2022-08-11] MEDS ORDERED: BISAC5TA PO (08:57)
[2022-08-11] MEDS ORDERED: CEFD300CAP PO (08:57)
[2022-08-11] MEDS ORDERED: CEFDINIR 300 MG CAP (OMNICEF) PO SCH (09:00)
[2022-08-11] MEDS: BISACODYL 5 MG TAB PO PRN (10:47)
[2022-08-11 14:00] VITALS: BP 119/58
[2022-08-11] MEDS: HEPARIN SOD (PORCINE) 5000UNITS/ML 1ML VIAL/SYRINGE SC SCH (14:00)
[2022-08-11] MEDS ORDERED: POLYETHYLENE GLYCOL (MIRALAX) 238GM BOTTLE PO ONE (14:00)
[2022-08-11] MEDS ORDERED: MAGNESIUM CITRATE 300 ML BTL PO ONE (17:25)
[2022-08-13] MEDS ORDERED: ONDA-83 PO (10:51)
== END 2022-08-11 18:42 | disposition home or self-care (01) | DRG 443 ==
LOC: M ED 16:27 → M ED INP 23:54 → ENRESERV 08-07 00:41 → M MSPAV 08-07 01:30
PROVIDERS: ADMIT Family Medicine; ATTEND General Practice
PROC: 0TP98DZ Removal of Intraluminal Device from Ureter, Via Natural or Artificial Opening Endoscopic (ICD-10-PCS; 2022-08-09)
PROC: BT0 Imaging, Urinary System, Plain Radiography (ICD-10-PCS; 2022-08-09)
PROC: 0T788DZ Dilation of Bilateral Ureters with Intraluminal Device, Via Natural or Artificial Opening Endoscopic (ICD-10-PCS; principal; 2022-08-09 10:30)
DX: N13.1 Hydronephrosis with ureteral stricture, not elsewhere classified (principal); J90 Pleural effusion, not elsewhere classified; J18.9 Pneumonia, unspecified organism; N17.9 Acute kidney failure, unspecified; C82.88 Other types of follicular lymphoma, lymph nodes of multiple sites; E87.5 Hyperkalemia; E86.0 Dehydration; E86.1 Hypovolemia; D63.0 Anemia in neoplastic disease; K59.03 Drug induced constipation; T40.2X5A Adverse effect of other opioids, initial encounter

== ENCOUNTER → 2022-08-25 | Outpatient (CLI) | payer OTHER ==
[~2022-08-25] MED LIST changes: +ACET-683 PO; +BISAC5TA PO; +CEFD300CAP PO; +DITR5TAB PO; +DOXY100T PO; +ONDA-83 PO; +PERCOCET PO; +SENN-52 PO
== END ==
LOC: M WHC 14:36
PROVIDERS: ATTEND Urology
DX: N13.30 Unspecified hydronephrosis (principal); Z96.0 Presence of urogenital implants

== ENCOUNTER → 2022-10-28 | Outpatient (CLI) | payer OTHER ==
[~2022-10-28] MED LIST changes: +GASTROGRAFIN SOLUTION 30ML As Ordered ONE; +ISOVUE-370 76% 100ML VIAL As Ordered ONE
== END ==
LOC: M RAD 14:15
PROVIDERS: ATTEND Internal Medicine Medical Oncology
DX: C82.90 Follicular lymphoma, unspecified, unspecified site (principal)

== ENCOUNTER → 2023-02-14 | Outpatient (CLI) | payer OTHER ==
[~2023-02-14] MED LIST changes: -GASTROGRAFIN SOLUTION 30ML As Ordered ONE; -ISOVUE-370 76% 100ML VIAL As Ordered ONE
== END ==
LOC: M PLARAD 08:12
PROVIDERS: ATTEND Internal Medicine Medical Oncology
DX: C82.98 Follicular lymphoma, unspecified, lymph nodes of multiple sites (principal)
CPT/HCPCS: 78815; A9552

== ENCOUNTER → 2023-05-24 | Outpatient (REF) | payer OTHER | LOC: M SFHCWAGY 13:17 | PROVIDERS: ATTEND Nurse Practitioner Family | DX: Z12.4 Encounter for screening for malignant neoplasm of cervix (principal) | CPT/HCPCS: 87624; G0123 ==

== ENCOUNTER → 2023-08-22 | Outpatient (CLI) | payer OTHER ==
[~2023-08-22] MED LIST changes: -OXYB5TAB10 PO; +OXYB5TAB11 PO
== END ==
LOC: M PLARAD 08:23
PROVIDERS: ATTEND Internal Medicine Medical Oncology
DX: C82.90 Follicular lymphoma, unspecified, unspecified site (principal)

== ENCOUNTER → 2024-06-05 | Outpatient (REF) | payer MEDICARE, OTHER ==
[~2024-06-05] MED LIST changes: -OXYB5TAB11 PO; +OXYB5TAB14 PO
[2024-06-08 12:00] LABS: HPV APTIMA Not Detected (Not Detected)
== END ==
LOC: M SFHCWAGY 08:18
PROVIDERS: ATTEND Nurse Practitioner Family
DX: Z12.4 Encounter for screening for malignant neoplasm of cervix (principal)

== ENCOUNTER → 2024-06-05 | Outpatient (CLI) | payer MEDICARE, OTHER | LOC: M WHC 13:18 | PROVIDERS: ATTEND Nurse Practitioner Family | DX: Z12.31 Encounter for screening mammogram for malignant neoplasm of breast (principal); R92.333 Mammographic heterogeneous density, bilateral breasts; Z12.4 Encounter for screening for malignant neoplasm of cervix; N88.8 Other specified noninflammatory disorders of cervix uteri ==

== ENCOUNTER → 2024-12-11 | Outpatient (CLI) | payer MEDICARE, OTHER ==
[~2024-12-11] MED LIST changes: +LEVO25TA5
== END ==
LOC: M PLARAD 07:14
PROVIDERS: ATTEND Nurse Practitioner Women's Health
DX: C82.98 Follicular lymphoma, unspecified, lymph nodes of multiple sites (principal)
CPT/HCPCS: 78815; A9552

== ENCOUNTER → 2025-06-06 | Outpatient (CLI) | payer MEDICARE, OTHER ==
[~2025-06-06] MED LIST changes: -LEVO25TA5; +LEVO25TA5 PO
== END ==
LOC: M WHC 10:26
PROVIDERS: ATTEND Nurse Practitioner Family
DX: Z12.31 Encounter for screening mammogram for malignant neoplasm of breast (principal); Z13.820 Encounter for screening for osteoporosis; N95.1 Menopausal and female climacteric states; R92.333 Mammographic heterogeneous density, bilateral breasts; M85.88 Other specified disorders of bone density and structure, other site; M81.8 Other osteoporosis without current pathological fracture

== ENCOUNTER → 2025-06-06 | Outpatient (REF) | payer MEDICARE, OTHER ==
[2025-06-08 12:27] LABS: HPV APTIMA Not Detected (Not Detected)
== END ==
LOC: M SFHCWAGY 12:56
PROVIDERS: ATTEND Nurse Practitioner Family
DX: Z12.4 Encounter for screening for malignant neoplasm of cervix (principal)
CPT/HCPCS: 87624; G0123